=== PATIENT | female | born 1975 | race Caucasian/White ===

== ENCOUNTER 2017-06-07 02:29 | Inpatient (IN) | payer OTHER ==
[~2017-06-07] VITALS: Ht 157.5 cm; Wt 88.1 kg
--- NOTE | 2017-06-07 09:40 | Operative Report ---
Operative/Inv Procedure Report Surgery Date: 06/07/17 Name of Procedure: Laparoscopic Sleeve Gastrectomy Pre-Operative Diagnosis: Morbid Obesity BMI 41 Post-Operative Diagnosis: Same Estimated Blood Loss: 50ml to 100ml Surgeon/Coding Analyst: Carlo English DO Anesthesia: general endotracheal tube IV Fluids: 1100 cc Drains: None Specimens: Stomach Complications: None Condition: Stable Operative Indication: This is a 42-year-old female that presented to the office for workup for bariatric surgery. After appropriate workup was completed I discussed with the patient the band, the sleeve, and the gastric bypass. The patient chose to undergo a sleeve gastrectomy. All risks including but not limited to bleeding, infection, leak, stricture, injury to surrounding bowel/esophagus/stomach/liver/ spleen, long-term reflux, DVT/PE, and mortality of 03/999 patients were discussed in detail. The patient understood everything and decided to proceed. Operative/Procedure Note Note: The patient was brought to the operating room and placed on the operating room table in supine position. Venodyne stockings were placed and adequate general endotracheal anesthesia was obtained. The patient was prepped and draped in standard surgical fashion. Began the procedure by making a 2 cm transverse incision supraumbilically and slightly to the left of the midline. Then using a 12 mm clear Visiport and a 10 mm 0 laparoscope, the abdominal cavity was accessed. Great care was taken to go through the anterior rectus sheath, the posterior rectus sheath, and through the peritoneum. Once we entered the peritoneum the abdominal cavity was insufflated to 15 mmHg. Upon initial examination no obvious gross pathology was seen. Accessory trocars were placed, 5 mm in the epigastrium for the Bertha liver retractor. The retractor was inserted and the liver was retracted anteriorly exposing the hiatus, no hiatal hernia was seen. 5 mm ports were placed in the right and left upper quadrant, a 5 mm left lateral port, and a 15 mm right lateral port. Began the procedure by mobilizing the greater curvature of the stomach approximately 7 cm from the pylorus. Once the retrogastric space was reached the whole greater curvature was mobilized maintaining hemostasis using Harmonic scalpel. Full hiatal dissection was performed, no hiatal hernia was seen. Posterior adhesions were taken down using Harmonic scalpel as well. Once the stomach was adequately mobilized a 38 Portuguese bougie was inserted and placed along the lesser curvature of the stomach. Once the bougie was in the appropriate position we began creating our sleeve, two 60 mm black staple loads with seamguard followed by two 60 mm purple staple loads with seamguard as well and finished with a 45 mm purple plain load. Great care was taken to leave ample room at the incisura angularis, to prevent any twisting or kinking of the sleeve, to stay lateral to the esophagogastric fat pad, and to do a full fundal excision. At the completion of the staple line the staple line was examined, it appeared intact and no obvious bleeding was noted. The bougie was removed, the sleeve was lying nicely without any twisting or kinking. The resected stomach was removed through the right lateral port site. The port and the left upper quadrant were irrigated until clear. All ports were removed under direct visualization no obvious bleeding was noted. The 15 mm port site fascia was closed using 0 Vicryl suture. The skin was closed using 4-0 Monocryl. Steri-Strips and dressings were placed. The patient was successfully extubated and transferred to the recovery room in stable condition. The patient tolerated the procedure well with no complications. Findings: No hiatal hernia, 38 Fr bougie CC: Eun VALLADARES,Lola Uribe
--- NOTE | 2017-06-07 09:51 | Admission Core Measures ---
Acute Coronary Syndrome (CM) ACS Core Measures Acute Coronary Syndrome Diagnosis No Congestive Heart Failure (NEW) CHF Core Measures Congestive Heart Failure Diagnosis No Cerebrovascular Accident (NEW) CVA Core Measures CVA/TIA Diagnosis No Venous Thromboembolism VTE Core Sadiq (View Protocol) VTE Risk Factors Surgery No Mechanical VTE Prophylaxis d/t N/A MechProphylax Ordered No VTE Pharm Prophylaxis d/t NA PharmProphylax ordered Problem List As ranked by this Provider includes Assessment & Plan 1. S/P laparoscopic sleeve gastrectomy 2. Morbid obesity
--- NOTE | 2017-06-07 09:51 | Surg Short-stay <48hrs Dis Sum ---
Visit Information Visit Dates Admission Date: 06/07/17 Discharge Date: 06/09/17 Surgical Short Stay DC Summary Admission Diagnosis: Morbid Obesity (BMI 41) Final Diagnosis: SAME ABOVE, S/P Surgery Date: 06/07/17 Name of Procedure: Laparoscopic Sleeve Gastrectomy Procedure(s): Surgery Date: 06/07/17 Name of Procedure: Laparoscopic Sleeve Gastrectomy Summary/Significant Findings: Electively scheduled laparoscopic sleeve gastrectomy by on 06/07/17 for history of morbid obesity (BMI 41). Started on stage 1 bariatric diet post- operatively. Pain control transitioned from iv to oral pain medication as tolerated. No lovenox indicated at the time of discharge, according to the pre- op risk assessment. Condition at Discharge: stable Discharge Disposition: home or self care Discharge instructions provided to patient/family: Yes Post discharge follow-up plan: one week follow up with no lovenox indicated at discharge Copies to: Eun VALLADARES,Lola Uribe
--- NOTE | 2017-06-07 09:57 | Patient Discharge Instructions ---
Discharge Instructions General Discharge Information You were seen/treated for: Morbid Obesity (BMI 41) You had these procedures: Surgery Date: 06/07/17 Name of Procedure: Laparoscopic Sleeve Gastrectomy Watch for these problems: fever>101.3, increased pain, redness/swelling/drainage, dizziness, shortness of breath, chest pains No bath, but you may shower: Yes Other wound care: ok to remove outer dressings. leave white steri strips in place. ok to shower. keep incisions clean & dry. Diet Continue normal diet: No Recommended Diet: Bariatric Additional DIET Information: weekly bariatric stage diet advancements as tolerated, as directed Activity Full Activity/No Limits: No Activity Self Limited: Yes Pounds, do NOT lift more than: 10 Other activity limits: no heavy lifting. no strenuous activity. Acute Coronary Syndrome Inclusion Criteria At DC or during hospital stay patient has or had the following: ACS DIAGNOSIS No Discharge Core Measures Meds if any: Prescribed or Continued at Discharge Meds if any: NOT Prescribed or Continued at Discharge Congestive Heart Failure Inclusion Criteria At DC or during hospital stay patient has or had the following: CHF DIAGNOSIS No Discharge Core Measures Meds if any: Prescribed or Continued at Discharge Meds if any: NOT Prescribed or Continued at Discharge Cerebrovascular accident Inclusion Criteria At DC or during hospital stay patient has or had the following: CVA/TIA Diagnosis No Discharge Core Measures Meds if any: Prescribed or Continued at Discharge Meds if any: NOT Prescribed or Continued at Discharge Venous thromboembolism Inclusion Criteria VTE Diagnosis No VTE Type NONE VTE Confirmed by (Test) NONE Discharge Core Measures - Per Current guidelines, there needs to be overlap - treatment for the first 5 days of Warfarin therapy. - If discharged on Warfarin prior to 5 days of - overlap therapy, the patient will need to be - assessed for post discharge needs including - *Post discharge parental anticoagulation - *Warfarin and/or parental anticoagulation education - *Follow up date to check INR post discharge At least 5 days overlap therapy as Inpatient No Meds if any: Prescribed or Continued at Discharge Note: Overlap Therapy is Warfarin and Anticoagulant Meds if any: NOT Prescribed or Continued at Discharge
[2017-06-07] MEDS ORDERED: HYCET 7.5 MG-3473 ML PO (09:58)
[2017-06-07] MEDS ORDERED: PROTONIX40 M3 PO (09:58)
[2017-06-07 12:00] VITALS: BP 126/80
--- NOTE | 2017-06-07 13:28 | PN- Bariatrics ---
Subjective Subjective: POC having epigastric pain, improving with movement. +void, no po intake yet- wating for tray. no n/v, no sob/cp. abd pain well controlled. going to ambulate in white now. Objective Vital Signs and I&Os Vital Signs Date Time Temp Pulse Resp B/P B/P Pulse O2 O2 Flow FiO2 Mean Ox Delivery Rate 06/07 1200 98.2 54 16 126/80 98 Room Air Room Air Intake & Output 06/07 1600 06/07 0800 06/07 0000 06/06 1600 06/06 0800 06/06 0000 Intake Total Output Total Balance Patient 220 lb Weight Weight Reported by Patient Measurement Method Physical Exam: gen- nad card- s1s2 rrr pulm- ctab abd- obese, soft, ttp at incisions, dressings cdi ext- calves soft nt, no edema Assessment/Plan Assessment/Plan A- POD0 sp lap sleeve gastrectomy, with epigastric pain likely related to gas/ insufflation, otherwise stable P- prn pain meds, prn antiemetics oob, ambulate dvt ppx- alps, hepsq maria a stg1 diet, then npo pmn, ?ugi in am nutrition cs am labs ivf strict i&os will dw attending Core Measures Venous Thromboembolism VTE Risk Factors Surgery No Mechanical VTE Prophylaxis d/t N/A MechProphylax Ordered No VTE Pharm Prophylaxis d/t NA PharmProphylax ordered
[2017-06-07 14:05] VITALS: BP 118/72
[2017-06-07 16:00] VITALS: BP 118/80
[2017-06-07 18:00] VITALS: BP 130/70
[2017-06-07 22:00] VITALS: BP 122/60
[2017-06-08 06:00] VITALS: BP 122/80
--- NOTE | 2017-06-08 07:28 | PN- Bariatrics ---
See Addendum Subjective Subjective: Pt. denies nausea or emesis. Slept well. Ambulated X2 in hallway last night Objective Vital Signs and I&Os Vital Signs Date Time Temp Pulse Resp B/P B/P Pulse O2 O2 Flow FiO2 Mean Ox Delivery Rate 06/08 0600 97.8 60 16 122/80 98 04/05 0000 Room Air 04 2200 97 Room Air / 2200 98.7 55 20 122/60 97 Room Air 04/ 1800 98.7 60 18 130/70 97 Room Air 04/ 1800 96 Room Air 04/ 1600 98.0 58 20 118/80 96 Room Air 04/ 1600 96 Room Air / 1405 97.8 48 18 118/72 99 Room Air 06/07 1400 96 Room Air 06/07 1338 Room Air 06/07 1200 95 Room Air 06/07 1200 98.2 54 16 126/80 98 Room Air Room Air Intake & Output 06/08 08 04/05 0000 04/04 1600 /04 0800 / 0000 /03 1600 Intake Total 750 1180 675 Output Total 500 500 600 Balance 250 680 75 Intake, IV 750 1000 375 Intake, Oral 180 300 Number 0 0 Bowel Movements Output, Urine 500 500 600 Patient 194 lb 220 lb Weight Weight Reported by Patient Measurement Method Alert, orieted, appropriate, looks comfortable Lungs clear bilat. Herat regular Abdomen is soft, obese. Port sites with dressings are C/D/I.Appropriately tender. Extr. without edema Assessment/Plan Assessment/Plan s/p lap. Gastric sleeve for MO, POD#1 Stable hemodynamics Abdominal exam is benign. Mild port sites tendereness as expected. No nausea. Plan : will advance diet and d/c UGI. Will d/c IVF if taking PO well. Cont. Tylenol for pain. Pt. did not require narcotics for pain control so far. Ambulate Possible d/c later today or tomorrow dependinmg on diet progression. Core Measures Venous Thromboembolism VTE Risk Factors Surgery No Mechanical VTE Prophylaxis d/t N/A MechProphylax Ordered No VTE Pharm Prophylaxis d/t NA PharmProphylax ordered
[2017-06-08 08:59] LABS: ABSOLUTE BASOPHIL COUNT 0 /CUMM (0.0-0.2); ABSOLUTE EOSINOPHIL COUNT 0 /CUMM (0.0-0.7); ABSOLUTE LYMPH COUNT 1.6 /CUMM (1.2-3.4); ABSOLUTE MONOCYTE COUNT 0.7 /CUMM (0.10-0.60)
[2017-06-08 09:10] LABS: ABSOLUTE GRANULOCYTE CT 6.6 /CUMM (1.4-6.5); BASOPHIL % 0.1 % (0.0-2.0); EOSINOPHIL % 0.3 % (0-5); GRANULOCYTE % 74.4 % (42.2-75.2); HEMATOCRIT 33.7 % (37-47); MEAN CORPUSCULAR HGB 31.1 PG (27.0-31.0); MEAN CORPUSCULAR VOLUME 91.7 FL (81.0-99.0); PLATELET COUNT 235 /CUMM (130-400); RBC DISTRIBUTION WIDTH 12.5 % (11.5-14.5); RED BLOOD CELL CT 3.67 /CUMM (4.20-5.40)
[2017-06-08 09:11] LABS: WHITE BLOOD CELL COUNT 8.9 /CUMM (4.8-10.8)
[2017-06-08 14:36] VITALS: BP 140/72
[2017-06-08 21:50] VITALS: BP 110/66
[2017-06-09 05:35] VITALS: BP 118/68
--- NOTE | 2017-06-09 07:46 | PN- Student ---
Naif Peguero 06/09/17 0733: Subjective Subjective: NO OVERNIGHT EVENTS. PATIENT FEELING WELL. REPORTS PASSING FLATUS MULTIPLE TIMES , AMBULATING FREQUENTLY, URINATING, PAIN WELL CONTROLLED, TOLERATING DIET WITH MODERATE NAUSEA YESTERDAY WELL CONTROLLED WITH ZOFRAN, AND NO NAUSEA WITH DIET THUS FAR TODAY. DENIES BM SINCE PROCEDURE. DENIES CHEST PAIN, SOB, HEADACHE, FEVER, CHILLS. Objective Objective: Vital Signs Date Time Temp Pulse Resp B/P B/P Pulse O2 O2 Flow FiO2 Mean Ox Delivery Rate 06/09 06 97 Room Air 06/09 0535 98.6 64 20 118/68 96 Room Air 06/08 2200 98 Room Air 06/08 2150 97.6 51 19 110/66 97 Room Air 06/08 1436 98.5 51 20 140/72 98 Room Air 06/08 1400 98 Room Air 06/08 0800 98 Room Air Intake & Output 06/09 0800 04 0000 04/05 1600 Intake Total 240 780 455 Output Total 300 1600 200 Balance -60 -820 255 Intake, IV 125 Intake, Oral 240 780 330 Number 0 0 Bowel Movements Output, Urine 300 1600 200 GENERAL: RESTING COMFORTABLY IN BED, NAD, ACTIVELY PARTICIPATED IN EXAM ABDOMEN- SOFTLY DISTENDED, DRESSINGS C/D/I WITHOUT SURROUNDING ERYTHEMA, NORMOACTIVE BOWEL SOUNDS, MILD TIFFANIE-INCISIONAL TENDERNESS CARDIAC- RRR, NO MRG PULM- CTAB, NO ACCESSORY MUSCLE USAGE LOWER EXTREMITIES: NO EDEMA OR ERYTHEMA, PNEUMATIC COMPRESSION DEVICES OFF OVERNIGHT, GROSS MOTOR AND NEUROLOGICAL FUNCTION INTACT, 2+ DP PULSES B/L Results Results: Laboratory Tests 06/08/17 1005: Anion Gap 8, Estimated GFR > 60, BUN/Creatinine Ratio 11.7, Glucose 91, Magnesium 1.8 06/08/17 0832: CBC w Diff NO MAN DIFF REQ, RBC 3.67 L, MCV 91.7, MCH 31.1 H, MCHC 34.0, RDW 12.5, MPV 10.0, Gran % 74.4, Lymphocytes % 17.5 L, Monocytes % 7.7, Eosinophils % 0.3, Basophils % 0.1, Absolute Granulocytes 6.6 H, Absolute Lymphocytes 1.6, Absolute Monocytes 0.7 H, Absolute Eosinophils 0, Absolute Basophils 0 06/07/17 0631: Urine Test NEGATIVE Assessment/Plan Assessment: 42 Y/O FEMALE, POD #2 S/P LAP SLEEVE GASTRECTOMY FOR MO. RECOVERING WELL POST-OP , PAIN AND NAUSEA WELL CONTROLLED, TOLERATING BARIATRIC DIET WELL, AWAITING FULL RETURN OF BOWEL FUNCTION. Plan: DIET: STAGE 1 CONTINUE CURRENT PAIN MANAGEMENT PPX: SQH, PNEUMATIC COMPRESSION DEVICES, OOB OOB TOLERATED CONTINUE HOME MEDICATIONS PLAN FOR DISCHARGE LATER TODAY Marita Burgess 06/09/17 0822: Assessment/Plan Plan: agree with above PA-S note discharge home today will d/w
[2017-06-09] MEDS ORDERED: ACETAMINOP-CODEI5 ML PO (08:25)
[2017-06-09] MEDS ORDERED: PROTONIX40 M3 PO (08:25)
[2017-06-09] MEDS ORDERED: ZOFRAN4 M2 PO (08:31)
== END 2017-06-09 14:07 | DRG 621 ==
LOC: SDA 02:29 → ENRESERV 10:09 → ENTRNSPT 11:08 → EDTRNSPT 11:47 → EDTRNSPTSTS 11:47 → 2NB 11:54 → CMPTRNSPT 11:55 → ENPENDDIS 06-09 11:12 → ENTRNSPT 06-09 13:58 → EDTRNSPTSTS 06-09 14:06 → 2NB 06-09 14:07 → CMPTRNSPT 06-09 14:13
PROVIDERS: Physician Assistant
PROC: 0DB64Z3 Excision of Stomach, Percutaneous Endoscopic Approach, Vertical (ICD-10-PCS; principal; 2017-06-07)
PROC: 3E0T3BZ Introduction of Anesthetic Agent into Peripheral Nerves and Plexi, Percutaneous Approach (ICD-10-PCS; principal; 2017-06-07)
DX: E66.01 Morbid (severe) obesity due to excess calories (principal); B00.9 Herpesviral infection, unspecified; G47.33 Obstructive sleep apnea (adult) (pediatric); Z68.41 Body mass index [BMI] 40.0-44.9, adult; Z91.040 Latex allergy status
CPT/HCPCS: 2NBSP; 36592; 81025; 82436; 88307; C9399; J0131; J0690; J1100; J1644; J2405; J2550; J7042